=== PATIENT | female | born 1935 | race Caucasian/White ===

== ENCOUNTER 2017-08-17 13:53 | Inpatient (IN) | payer MEDICARE, OTHER ==
[2017-08-17] MEDS: MIRALAX *UNIT DOSE* 17GM PACKET PO (09:00)
[~2017-08-17 13:53] MED LIST: BISACODYL 10 MG SUPP PR; BISACODYL 5 MG TAB PO; CALCIUM CARBONATE 500 MG CHEW U/D PO; FLEET ENEMA PR; MOM 30ML SUSPENSION UDC PO; ONDANSETRON 4 MG TAB (S0181) PO; oxyCODONE 5MG TAB PO
[2017-08-17 14:34] LABS: HEMATOCRIT 27.8 % (36.0-47.0); HEMOGLOBIN 9.1 g/dl (12.0-16.0)
[2017-08-17] MEDS ORDERED: PILL CUTTER/CRUSHER XX (14:45)
[2017-08-17] MEDS: ACETAMINOPHEN 325 MG TAB PO ×2 (16:00→20:31)
[2017-08-17] MEDS: FERROUS GLUCONATE 324 MG TAB PO (16:40)
[2017-08-17] MEDS: ASPIRIN 81 MG ENTERIC TAB PO (16:40)
[2017-08-17] MEDS: ASCORBIC ACID 500 MG TAB PO (16:40)
[2017-08-17] MEDS: ENOXAPARIN 30 MG/0.3 ML SYR (J1650) SC (18:03)
[2017-08-17] MEDS: SENNA 8.6 MG TAB (SENOKOT) PO (20:30)
[2017-08-17] MEDS: SIMVASTATIN 20 MG TAB PO (20:31)
[2017-08-18] MEDS: ENOXAPARIN 30 MG/0.3 ML SYR (J1650) SC ×2 (05:29→17:03)
[2017-08-18 06:50] LABS: BASO % 0.3 % (0.0-1.0); EOS # 0.2 10^3/uL (0.0-0.50); EOS % 3.7 % (0.0-3.0); HEMATOCRIT 25.2 % (36.0-47.0); HEMOGLOBIN 8.3 g/dl (12.0-16.0); IMMATURE GRANULOCYTE % 0.6 % (0-3.0); LYMPH # 1.5 10^3/uL (1.5-4.5); LYMPH % 22.7 % (24.0-44.0); MEAN CORPUSCULAR HEMOGLOBIN 29.6 pg (27.0-33.0); MEAN CORPUSCULAR HGB CONC 32.9 g/dl (32.0-36.5); MONO # 0.9 10^3/uL (0.0-0.8); NEUTROPHILS # 3.8 10^3/uL (1.8-7.7); NEUTROPHILS % 58.7 % (36.0-66.0); PLATELET COUNT, AUTOMATED 226 10^3/uL (150-450); RED CELL DISTRIBUTION WIDTH 15.5 % (11.5-14.5); WHITE BLOOD COUNT 6.5 10^3/uL (4.0-10.0)
[2017-08-18 07:13] LABS: ALBUMIN 2.3 GM/DL (3.2-5.2); ALBUMIN/GLOBULIN RATIO 0.79 (1.00-1.93); ALKALINE PHOSPHATASE 52 U/L (45-117); ALT/SGPT 11 U/L (12-78); ANION GAP 7 MEQ/L (8-16); AST/SGOT 23 U/L (7-37); BILIRUBIN,TOTAL 0.9 MG/DL (0.2-1.0); BLOOD UREA NITROGEN 28 MG/DL (7-18); CALCIUM LEVEL 8.2 MG/DL (8.8-10.2); CARBON DIOXIDE LEVEL 27 MEQ/L (21-32); CHLORIDE LEVEL 108 MEQ/L (98-107); CREATININE FOR GFR 0.98 MG/DL (0.55-1.30); GLOMERULAR FILTRATION RATE 57.8 (>32); GLUCOSE, FASTING 100 MG/DL (70-100); POTASSIUM SERUM 4.1 MEQ/L (3.5-5.1); SODIUM LEVEL 142 MEQ/L (136-145); TOTAL PROTEIN 5.2 GM/DL (6.4-8.2)
[2017-08-18] MEDS: ASCORBIC ACID 500 MG TAB PO (08:56)
[2017-08-18] MEDS: FERROUS GLUCONATE 324 MG TAB PO (08:56)
[2017-08-18] MEDS: ASPIRIN 81 MG ENTERIC TAB PO (08:56)
[2017-08-18] MEDS: ACETAMINOPHEN 325 MG TAB PO ×3 (08:56→20:42)
[2017-08-18] MEDS: MIRALAX *UNIT DOSE* 17GM PACKET PO (08:57)
[2017-08-18] MEDS ORDERED: LISINOPRIL 5 MG TAB PO (11:12)
[2017-08-18] MEDS: FAMOTIDINE 20 MG TAB PO ×2 (12:15→20:41)
[2017-08-18] MEDS: LISINOPRIL 5 MG TAB PO (12:15)
[2017-08-18] MEDS: IBUPROFEN 400 MG TAB PO ×2 (14:00→22:00)
[2017-08-18] MEDS: SIMVASTATIN 20 MG TAB PO (20:41)
[2017-08-18] MEDS: SENNA 8.6 MG TAB (SENOKOT) PO (20:43)
[2017-08-19] MEDS: ENOXAPARIN 30 MG/0.3 ML SYR (J1650) SC ×2 (06:36→17:52)
[2017-08-19] MEDS: IBUPROFEN 400 MG TAB PO ×3 (06:36→22:00)
[2017-08-19] MEDS: MIRALAX *UNIT DOSE* 17GM PACKET PO (09:00)
[2017-08-19] MEDS ORDERED: LISINOPRIL 5 MG TAB PO (09:00)
[2017-08-19] MEDS: FERROUS GLUCONATE 324 MG TAB PO (09:09)
[2017-08-19] MEDS: ASCORBIC ACID 500 MG TAB PO (09:09)
[2017-08-19] MEDS: ASPIRIN 81 MG ENTERIC TAB PO (09:09)
[2017-08-19] MEDS: FAMOTIDINE 20 MG TAB PO ×2 (09:09→21:50)
[2017-08-19] MEDS: LISINOPRIL 5 MG TAB PO (09:10)
[2017-08-19] MEDS: ACETAMINOPHEN 325 MG TAB PO ×3 (10:55→21:51)
[2017-08-19] MEDS: SENNA 8.6 MG TAB (SENOKOT) PO (21:00)
[2017-08-19] MEDS: SIMVASTATIN 20 MG TAB PO (21:50)
[2017-08-20] MEDS: IBUPROFEN 400 MG TAB PO ×3 (06:27→22:00)
[2017-08-20] MEDS: ENOXAPARIN 30 MG/0.3 ML SYR (J1650) SC ×2 (06:28→17:09)
[2017-08-20 06:33] LABS: HEMOGLOBIN 8.1 g/dl (12.0-16.0); MEAN CORPUSCULAR HEMOGLOBIN 29.8 pg (27.0-33.0); MEAN CORPUSCULAR HGB CONC 32.4 g/dl (32.0-36.5); MEAN CORPUSCULAR VOLUME 91.9 fl (80.0-96.0); PLATELET COUNT, AUTOMATED 296 10^3/uL (150-450); RED BLOOD COUNT 2.72 10^6/uL (4.00-5.40); RED CELL DISTRIBUTION WIDTH 15.8 % (11.5-14.5); WHITE BLOOD COUNT 4.8 10^3/uL (4.0-10.0)
[2017-08-20] MEDS: MIRALAX *UNIT DOSE* 17GM PACKET PO (09:00)
[2017-08-20] MEDS: FAMOTIDINE 20 MG TAB PO ×2 (09:30→21:07)
[2017-08-20] MEDS: ASCORBIC ACID 500 MG TAB PO (09:30)
[2017-08-20] MEDS: FERROUS GLUCONATE 324 MG TAB PO (09:30)
[2017-08-20] MEDS: ASPIRIN 81 MG ENTERIC TAB PO (09:30)
[2017-08-20] MEDS: VITAMIN D 50,000 UNITS CAPSULE (ERGOCALCIFEROL 1.25MG) PO (09:30)
[2017-08-20] MEDS: LISINOPRIL 5 MG TAB PO (09:31)
[2017-08-20] MEDS: ACETAMINOPHEN 325 MG TAB PO ×3 (09:31→21:08)
[2017-08-20] MEDS: SENNA 8.6 MG TAB (SENOKOT) PO (21:00)
[2017-08-20] MEDS: SIMVASTATIN 20 MG TAB PO (21:07)
[2017-08-21] MEDS: ENOXAPARIN 30 MG/0.3 ML SYR (J1650) SC ×2 (05:32→18:17)
[2017-08-21] MEDS: IBUPROFEN 400 MG TAB PO ×3 (05:32→21:18)
[2017-08-21] MEDS: FERROUS GLUCONATE 324 MG TAB PO (08:38)
[2017-08-21] MEDS: FAMOTIDINE 20 MG TAB PO ×2 (08:38→21:18)
[2017-08-21] MEDS: ASPIRIN 81 MG ENTERIC TAB PO (08:38)
[2017-08-21] MEDS: ASCORBIC ACID 500 MG TAB PO (08:39)
[2017-08-21] MEDS: MIRALAX *UNIT DOSE* 17GM PACKET PO (08:39)
[2017-08-21] MEDS: LISINOPRIL 5 MG TAB PO (08:39)
[2017-08-21] MEDS: ACETAMINOPHEN 325 MG TAB PO ×3 (08:40→21:18)
[2017-08-21] MEDS: hydroCHLOROthiazide 25 MG TAB PO (13:51)
[2017-08-21] MEDS: SENNA 8.6 MG TAB (SENOKOT) PO (21:00)
[2017-08-21] MEDS: SIMVASTATIN 20 MG TAB PO (21:18)
[2017-08-22] MEDS: ENOXAPARIN 30 MG/0.3 ML SYR (J1650) SC (05:31)
[2017-08-22] MEDS: IBUPROFEN 400 MG TAB PO ×3 (05:32→21:08)
[2017-08-22] MEDS: ACETAMINOPHEN 325 MG TAB PO ×3 (09:00→21:08)
[2017-08-22] MEDS: ASCORBIC ACID 500 MG TAB PO (09:33)
[2017-08-22] MEDS: hydroCHLOROthiazide 25 MG TAB PO (09:33)
[2017-08-22] MEDS: ASPIRIN 81 MG ENTERIC TAB PO (09:33)
[2017-08-22] MEDS: FERROUS GLUCONATE 324 MG TAB PO (09:33)
[2017-08-22] MEDS: FAMOTIDINE 20 MG TAB PO ×2 (09:33→21:08)
[2017-08-22] MEDS: LISINOPRIL 5 MG TAB PO (09:34)
[2017-08-22] MEDS: SENNA 8.6 MG TAB (SENOKOT) PO (21:00)
[2017-08-22] MEDS: SIMVASTATIN 20 MG TAB PO (21:08)
[2017-08-23] MEDS: IBUPROFEN 400 MG TAB PO (05:04)
[2017-08-23] MEDS: ENOXAPARIN 30 MG/0.3 ML SYR (J1650) SC (05:04)
[2017-08-23 06:55] LABS: HEMATOCRIT 26.4 % (36.0-47.0); HEMOGLOBIN 8.3 g/dl (12.0-16.0); MEAN CORPUSCULAR HGB CONC 31.4 g/dl (32.0-36.5); MEAN CORPUSCULAR VOLUME 92.3 fl (80.0-96.0); PLATELET COUNT, AUTOMATED 436 10^3/uL (150-450); RED BLOOD COUNT 2.86 10^6/uL (4.00-5.40); WHITE BLOOD COUNT 4.5 10^3/uL (4.0-10.0)
[2017-08-23] MEDS: FERROUS GLUCONATE 324 MG TAB PO (08:55)
[2017-08-23] MEDS: LISINOPRIL 5 MG TAB PO (08:55)
[2017-08-23] MEDS: ASPIRIN 81 MG ENTERIC TAB PO (08:55)
[2017-08-23] MEDS: hydroCHLOROthiazide 25 MG TAB PO (08:55)
[2017-08-23] MEDS: ASCORBIC ACID 500 MG TAB PO (08:55)
[2017-08-23] MEDS: FAMOTIDINE 20 MG TAB PO (08:55)
[2017-08-23] MEDS: ACETAMINOPHEN 325 MG TAB PO (10:49)
== END 2017-08-23 12:15 | disposition home or self-care (01) | DRG 560 ==
LOC: M PM&R 13:53
DX: S72.042D Displaced fracture of base of neck of left femur, subsequent encounter for closed fracture with routine healing (principal); D62 Acute posthemorrhagic anemia; N17.9 Acute kidney failure, unspecified; I12.9 Hypertensive chronic kidney disease with stage 1 through stage 4 chronic kidney disease, or unspecified chronic kidney disease; E78.5 Hyperlipidemia, unspecified; K21.9 Gastro-esophageal reflux disease without esophagitis; E03.9 Hypothyroidism, unspecified; E83.42 Hypomagnesemia; N18.9 Chronic kidney disease, unspecified; Z79.82 Long term (current) use of aspirin; Z79.899 Other long term (current) drug therapy; W18.30XD Fall on same level, unspecified, subsequent encounter; Y92.009 Unspecified place in unspecified non-institutional (private) residence as the place of occurrence of the external cause; S27.0XXD Traumatic pneumothorax, subsequent encounter

== ENCOUNTER 2017-09-04 08:54 | Outpatient (RCR) | payer MEDICARE | END 2017-10-02 | LOC: M PT 08:54 | DX: Z51.89 Encounter for other specified aftercare (principal); S72.002D Fracture of unspecified part of neck of left femur, subsequent encounter for closed fracture with routine healing | CPT/HCPCS: 97110 ==

== ENCOUNTER 2017-10-03 08:59 | Outpatient (RCR) | payer MEDICARE | END 2017-11-02 | LOC: M PT 10-12 09:40 | DX: Z51.89 Encounter for other specified aftercare (principal); S29.012D Strain of muscle and tendon of back wall of thorax, subsequent encounter; W18.30XD Fall on same level, unspecified, subsequent encounter; Y92.009 Unspecified place in unspecified non-institutional (private) residence as the place of occurrence of the external cause | CPT/HCPCS: 97110 ==